=== PATIENT | male | born 1955 | race Caucasian/White ===

== ENCOUNTER 2016-12-24 17:38 | Emergency (ER) | payer MEDICAID ==
--- NOTE | 2016-12-24 18:03 | EDM.PDOC ---
ED HPI GENERAL MEDICAL PROBLEM - General Chief Complaint: ENT Problem Stated Complaint: TOOTH PAIN Time Seen by Provider: 12/24/16 17:42 Source of Information: Reports: Patient History Limitations: Reports: No Limitations - History of Present Illness INITIAL COMMENTS - FREE TEXT/NARRATIVE: Patient is a 61-year-old male who presents to the ED complaining of right lower molar pain. This started approximately 2 days ago and has progressively gotten worse. Increasing pain with chewing food and also drinking liquids. States last night he did not sleep well secondary to throbbing sensation while laying flat. He's been taking ibuprofen and Aleve with minimal discomfort. Did speak with a dentist and Al over the phone today and was instructed to come to the ED for antibiotics and pain therapy. Denies any fever/chills, nausea/vomiting, swelling, or any additional complaints. Right Lower Tooth/Teeth Pain Score (Numeric/FACES): 8 - Related Data Allergies Allergy/AdvReac Type Severity Reaction Status Date / Time No Known Allergies Allergy Verified 12/24/16 17:51 Home Meds: Home Meds Losartan [Cozaar] 100 mg PO DAILY 12/24/16 [History] Penicillin V Potassium [IJD: Penicillin V Potassium] 500 mg PO .EVERY 6 HOURS # 28 tab 12/24/16 [Rx] ED ROS ENT - Review of Systems Review Of Systems: ROS reveals no pertinent complaints other than HPI. ED EXAM, ENT - Physical Exam Exam: See Below Exam Limited By: No Limitations General Appearance: Alert, WD/WN, No Apparent Distress, Obese Eye Exam: Bilateral Eye: PERRL Ears: Hearing Grossly Normal Nose: Normal Inspection Mouth/Throat: Normal Inspection, Normal Gums, Normal Oropharynx, Normal Teeth, Dental Pain (#32 tooth), Dental Tenderness (#32 tooth). No: Dental Abcess, Dental Trauma, Drooling, Dry Mucous Membrane, Gum Swelling, Throat Pain, Throat Swelling, Tonsillar Erythema, Tonsillar Exudates, Tonsillar Swelling, Trismus Neck: Normal Inspection, Supple. No: Lymphadenopathy (L), Lymphadenopathy (R) Respiratory/Chest: No Respiratory Distress, No Accessory Muscle Use Cardiovascular: Normal Peripheral Pulses, Regular Rate, Rhythm Neurological: Alert, Oriented, Normal Cognition Psychiatric: Normal Affect, Normal Mood Skin: Warm, Dry, Normal Color Course - Vital Signs Last Recorded V/S: Last Vital Signs Temp 97.5 F 12/24/16 17:48 Pulse 94 12/24/16 17:48 Resp 20 12/24/16 17:48 BP 161/99 H 12/24/16 17:48 Pulse Ox 95 12/24/16 17:48 - Re-Assessments/Exams Free Text/Narrative Re-Assessment/Exam: Inferior alveolar block utilizing vivicaine 0.5%, 1.8 mL. Patient had immediate pain relief. Ordered penicillin 500 mg by mouth. We'll discharge patient home with instructions as documented. Departure - Departure Time of Disposition: 18:01 Disposition: Home, Self-Care 01 Condition: Good Clinical Impression: Pain, dental - Discharge Information Prescriptions: Penicillin V Potassium [IJD: Penicillin V Potassium] 500 mg PO .EVERY 6 HOURS # 28 tab Instructions: Tooth Injuries, [id number] Forms: ED Department Discharge Additional Instructions: Take the full course of antibiotic as prescribed. Utilize Tylenol and ibuprofen in alternating fashion for pain. Sleep with your head elevated to reduce throbbing sensation. Call and make an appointment with your dentist to be seen as soon as you return. Return to ED as needed for any new or worsening symptoms.
== END 2016-12-24 18:15 | disposition home or self-care (01) ==
LOC: JD.ED 17:38
CPT/HCPCS: 64400; 99283; 99283-25